=== PATIENT | male | born 1975 | race Caucasian/White ===

== ENCOUNTER 2020-11-29 17:53 | Emergency (ER) | payer BC ==
[~2020-11-29] VITALS: Ht 185.4 cm; Wt 72.6 kg
[2020-11-29] MEDS ORDERED: VENTOLIN HFA18 GM INH (18:18)
[2020-11-29] MEDS ORDERED: RIZATRIPTAN10 MG PO (18:18)
[2020-11-29] MEDS ORDERED: METOPROLOL SUCC25 MG PO (18:18)
[2020-11-29] MEDS ORDERED: FLUTICASONE-SA1 EAC4 IH (18:19)
[2020-11-29] MEDS ORDERED: ONDANSETRON ODT8 MG PO (19:55)
== END 2020-11-29 20:50 | disposition home or self-care (01) ==
LOC: ED 17:53
DX: K29.01 Acute gastritis with bleeding (principal); J45.909 Unspecified asthma, uncomplicated; Z87.891 Personal history of nicotine dependence; Z79.899 Other long term (current) drug therapy
CPT/HCPCS: 80053; 85025; 85610; 85730; 86850; 86900; 86901; 96374; 96375; 99284-25; C9113; J2405; J7040